=== PATIENT | female | born 2000 | race Caucasian/White ===

== ENCOUNTER → 2020-11-19 | Outpatient (CLI) | payer OTHER ==
[~2020-11-19] VITALS: Ht 160 cm; Wt 63.6 kg
[~2020-11-19] MED LIST: ESCI10TA PO; NORG1TAB16 PO
== END | disposition home or self-care (01) ==
LOC: PREOP 05:36
PROVIDERS: ATTEND Otolaryngology Otolaryngology/Facial Plastic Surgery
DX: Z01.818 Encounter for other preprocedural examination (principal)

== ENCOUNTER 2020-11-26 06:08 | Day surgery (SDC) | payer OTHER ==
[~2020-11-26] VITALS: Ht 160 cm; Wt 63.6 kg
[2020-11-26] VITALS (9 sets, daily range): BP systolic 120–146; BP diastolic 71–90
[2020-11-26] MEDS: LACTATED RINGERS 1,000 ML IV PRN ×2 (06:35→08:46)
[2020-11-26 06:46] LABS: BASOPHILS % (AUTO) 0 % (0-10); EOSINOPHILS # (AUTO) 0.2 10^3/uL (0.0-0.3); EOSINOPHILS % (AUTO) 3 % (0-10); HEMATOCRIT 40 % (35-52); LYMPHOCYTES % (AUTO) 45 % (12-44); MEAN CORPUSCULAR HEMOGLOBIN 29 pg (25-34); MEAN CORPUSCULAR HGB CONC 33 g/dL (32-36); MEAN CORPUSCULAR VOLUME 88 fL (80-99); MEAN PLATELET VOLUME 9.6 fL (9.0-12.2); MONOCYTES # (AUTO) 0.8 10^3/uL (0.0-1.0); MONOCYTES % (AUTO) 8 % (0-12); NEUTROPHILS % (AUTO) 44 % (42-75); PLATELET COUNT 398 10^3/uL (130-400); WHITE BLOOD COUNT 9.1 10^3/uL (4.3-11.0)
[2020-11-26] MEDS ORDERED: LIDOCAINE PF 2% 5 ML (XYLOCAINE) VIAL ONE (06:49)
[2020-11-26] MEDS ORDERED: SEVOFLURANE (ULTANE) 15 ML INHAL SOLN ONE ×2 (06:49→08:25)
[2020-11-26] MEDS ORDERED: proPOfol 200 MG/20 ML (DIPRIVAN) VIAL IV ONE (06:49)
[2020-11-26] MEDS ORDERED: MIDAZOLAM 2 MG/2 ML (VERSED) VIAL ONE (06:50)
[2020-11-26] MEDS ORDERED: fentaNYL INJ 100 MCG/2 ML AMP ONE (06:51)
[2020-11-26] MEDS ORDERED: LIDOCAINE/EPI 1%-1:100,000 (XYLOCAINE) 20ML ONE (06:58)
[2020-11-26] MEDS ORDERED: COCAINE HCL 4% 2 ML SYR ONE (06:58)
[2020-11-26] MEDS ORDERED: PHENYLEPHRINE 0.5% NASAL SPR (NEO-SYNEPHRINE) REG ONE (06:58)
[2020-11-26] MEDS ORDERED: BSS 15 ML ONE (06:58)
--- NOTE | 2020-11-26 07:03 | Progress Note-Pre Operative ---
Pre-Operative Progress Note H&P Reviewed The H&P was reviewed, patient examined and no changes noted. Date Seen by Provider: Nov 26, 2020 Time Seen by Provider: 06:30 Date H&P Reviewed: Nov 26, 2020 Time H&P Reviewed: 06:30 Pre-Operative Diagnosis: Rec Tons/Tonsillar Hyper with UAo, Dev Septum/ Bialt Hyper of Inf Turbs TAWANDA ALY MD Nov 26, 2020 07:03
[2020-11-26] MEDS ORDERED: LEVO5TAB28 PO (07:14)
[2020-11-26] MEDS ORDERED: GLYCOPYRROLATE 0.2 MG/ML (ROBINUL) 2 ML VIAL ONE (08:25)
[2020-11-26] MEDS ORDERED: NEOSTIGMINE 3 MG/3 ML VIAL ONE (08:25)
[2020-11-26] MEDS ORDERED: ROCURONIUM 10 MG/ML 5 ML SYRINGE IV ONE (08:25)
[2020-11-26] MEDS ORDERED: ONDANSETRON 4 MG/2 ML (SDV) Z0FRAN ONE (08:26)
[2020-11-26] MEDS ORDERED: MEPERIDINE (DEMEROL) INJ 50 MG/ML ONE (08:34)
--- NOTE | 2020-11-26 08:59 | Progress Note-Post Operative ---
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 Specimen(s) collected/removed tonsils TAWANDA ALY MD Nov 26, 2020 08:59
[2020-11-26] MEDS ORDERED: APAP 325 MG/10.15 ML LIQ (TYLENOL) UDC PO PRN (09:00)
[2020-11-26] MEDS ORDERED: HYDROcodone/APAP 7.5MG-325 MG/15 ML (LORTAB) UDC PO PRN (09:00)
[2020-11-26] MEDS ORDERED: ONDANSETRON 4 MG/2 ML (SDV) Z0FRAN IVP PRN (09:00)
[2020-11-26] MEDS ORDERED: HYDROmorphone 2 MG/ML VIAL (DILAUDID) IV ONE (09:00)
[2020-11-26] MEDS ORDERED: morphine INJ 10 MG/ML 1ML (SYR OR VIAL) IVP ONE (09:00)
[2020-11-26] MEDS ORDERED: fentaNYL INJ 100 MCG/2 ML AMP IVP ONE (09:00)
[2020-11-26] MEDS ORDERED: NS IV 1000 ML 1,000 ML IV SCH (09:00)
[2020-11-26] MEDS ORDERED: MEPERIDINE (DEMEROL) INJ 50 MG/ML IVP ONE (09:00)
[2020-11-26] MEDS ORDERED: ONDANSETRON 4 MG (ZOFRAN) ORAL DISSOLVE TAB PO PRN (09:15)
[2020-11-26] MEDS ORDERED: ONDA4TAB11 PO (10:08)
[2020-11-26] MEDS ORDERED: AMOX250S5 PO (10:08)
[2020-11-26] MEDS ORDERED: HYDR15SO8 PO (10:08)
[2020-11-26] MEDS ORDERED: DEXAINTSOL PO (10:08)
[2020-11-26] MEDS ORDERED: TETRACAINESUCKERS MT (10:08)
--- NOTE | 2020-11-26 10:52 | Anesthesia-General Post-Op ---
General Patient Condition Mental Status/LOC: Same as Preop Cardiovascular: Satisfactory Nausea/Vomiting: Absent Respiratory: Satisfactory Pain: Controlled Complications: Absent Post Op Complications Complications None Follow Up Care/Instructions Patient Instructions None needed. Anesthesia/Patient Condition Patient Condition Patient is doing well, no complaints, stable vital signs, no apparent adverse anesthesia problems. No complications reported per nursing. JOSE MOORE CRNA Nov 26, 2020 10:52
== END 2020-11-26 11:25 | disposition home or self-care (01) ==
LOC: SDC 06:08
PROVIDERS: ATTEND Otolaryngology Otolaryngology/Facial Plastic Surgery
DX: J35.3 Hypertrophy of tonsils with hypertrophy of adenoids (principal); J03.91 Acute recurrent tonsillitis, unspecified; J34.3 Hypertrophy of nasal turbinates; J34.2 Deviated nasal septum; R09.81 Nasal congestion; J98.8 Other specified respiratory disorders; Z86.16 Personal history of COVID-19
CPT/HCPCS: 36415; 84703; 85025; 87081; 88300; 88304